=== PATIENT | male | born 1965 | race Caucasian/White ===

== ENCOUNTER 2019-06-15 09:52 | Emergency (ER) | payer OTHER, SELFPAY ==
[2019-06-15 09:53] VITALS: BP 125/87; PULSE 71; RESP 18; TEMP 36.6; O2SAT 98; BMI 28.1
--- NOTE | 2019-06-15 10:02 | EKG12_ITS ---
Test Reason : FALL Blood Pressure : / mmHG Vent. Rate : 070 BPM Atrial Rate : 070 BPM P-R Int : 144 ms QRS Dur : 092 ms QT Int : 384 ms P-R-T Axes : 066 072 046 degrees QTc Int : 414 ms Normal sinus rhythm Normal ECG Confirmed by CLEOPATRA IVY, LEV ([id number]), video effects editor IFEOMA ABARCA ([id number]) on 06/22/2019 2:05:14 PM Referred By: JEANNA Confirmed By:LEV WHELAN MD
--- NOTE | 2019-06-15 10:03 | CT_ITS ---
STUDY: CT CERVICAL SPINE WITHOUT CONTRAST REASON FOR EXAM: Male, 53 years old. Neck pain following the 12 foot fall. RADIATION DOSAGE (If Supplied By Facility): CTDIvol = ( 20.22 ) mGy, DLP = ( 349.69 ) mGycm TECHNIQUE: High resolution transaxial imaging was performed without contrast material. Sagittal and coronal images were reconstructed. Individualized dose optimization techniques were used for this CT. COMPARISON: None FINDINGS: Normal craniovertebral junction. Normal anterior atlantoaxial articulation. Normal odontoid process. Normal cervical lordosis. Normal vertebral bodies and posterior osseous elements. C2-3: Normal endplates. Normal disc height and morphology. Normal central canal and intervertebral neuroforamina. C3-4: Mild left paracentral spondylosis causing minimal deformity of the thecal sac. C4-5: Mild degree of disc space narrowing. Anterior spondylosis. Uncovertebral arthrosis. No significant stenosis is seen. C5-6: Mild degree of disc space narrowing and spondylosis. Uncovertebral arthrosis. No stenosis is seen. C6-7: Normal endplates. Normal disc height and morphology. Normal central canal and intervertebral neuroforamina. C7-T1: Normal endplates. Normal disc height and morphology. Normal central canal and intervertebral neuroforamina. I suspect a nondisplaced fracture along the posterior aspect of the right second rib. CT/Spine Cervical without Contras IMPRESSION: Multilevel degenerative changes, as described above. I suspect a nondisplaced fracture along the medial aspect of the posterior portion of the right second rib Electronically Signed: Anshu Blackwood, at 11:12 EST , Service support ,
--- NOTE | 2019-06-15 10:03 | CT_ITS ---
STUDY: CT ABDOMEN AND PELVIS WITH CONTRAST REASON FOR EXAM: Male, 53 years old. Right upper quadrant pain following a 12 foot fall. RADIATION DOSAGE (If Supplied By Facility): CTDIvol = ( 19.15 ) mGy, DLP = ( 1226.06 ) mGycm TECHNIQUE: Transaxial images were obtained from the dome of the diaphragm to the symphysis pubis without oral contrast. IV Isovue 300 100CC was administered. Sagittal and coronal images were reconstructed. Individualized dose optimization techniques were used for this CT. COMPARISON: None. FINDINGS: Mild degree of increased markings at the lung bases suggestive of atelectasis and/or scarring. The visualized portions of the heart are within normal limits. Normal liver. Normal gallbladder and extrahepatic biliary system. Normal spleen. Normal pancreas. Normal bilateral adrenal glands. Normal right kidney. Normal left kidney. There is a small hiatal hernia. Normal small intestine. Normal colon. The appendix is visualized and appears normal. There is scattered atherosclerotic calcification of the abdominal aorta, without a demonstrated aneurysm. Normal inferior vena cava. There is borderline retroperitoneal lymphadenopathy with enlarged nodes no greater than 10mm in the short axis diameter. Normal urinary bladder. There is a small umbilical hernia containing fat. Small right inguinal hernia containing fat. There are mild degenerative changes of the visualized lumbar spine. CT/Abdomen/Pelvis WITH Contrast IMPRESSION: Mild degree of increased markings at the lung bases suggestive of atelectasis and/or scarring. Electronically Signed: Anshu Blackwood, at 10:56 EST , Service support ,
--- NOTE | 2019-06-15 10:03 | CT_ITS ---
STUDY: CT BRAIN WITHOUT CONTRAST REASON FOR EXAM: Male, 53 years old. Headache and loss of consciousness following a 12 foot fall. RADIATION DOSAGE (If Supplied By Facility): CTDIvol = ( 44.99 ) mGy, DLP = ( 829.85 ) mGycm TECHNIQUE: Transaxial CT imaging of the brain was performed without administration of intravenous contrast material. Individualized dose optimization techniques were used for this CT. COMPARISON: No relevant priors. FINDINGS: Normal soft tissue structures. Normal calvarium. Normal size ventricles and extra-axial spaces for the patient's age. Normal white matter tracts of the cerebral hemispheres. Normal basal ganglia and thalami. Normal brainstem. Normal cerebellum. There is no intracranial hemorrhage. There are no findings of an acute ischemic infarction. Normal visualized paranasal sinuses. CT/Brain/Head without Contrast IMPRESSION: Normal unenhanced CT scan of the brain. Electronically Signed: Anshu Blackwood, at 10:53 EST , Service support ,
--- NOTE | 2019-06-15 10:04 | ED.DCSUM_ITS ---
History of Present Illness Chief Complaint: Fall Informant: Patient, - - Worker Onset: Today Mechanism/Context: Fall - 12 foot fall backwards Quality of Pain: Dull, Aching, Throbbing Current Severity: Severe Maximum Severity: Severe Worsened by: Breathing and movement of torso Relieved by: Nothing Associated Symptoms: Loss of consciousness, Amnesia, - - There are periods of time where patient cannot give specific details. Based on history obtained it is my opinion the patient did have loss of consciousness.. Negative for: Parasthesias, Weakness, Loss of function, Inability to ambulate Length of loss of consciousness: Brief Narrative: Patient is a 53-year-old male who has no sniffing past medical history. He was 12 feet off the ground when he was walking backwards at a job site. He fell. He landed on his back. He did hit his head. Based on the fact that there are time that he is unable to account for suspect he had loss of conscious. He does report severe headache. He also complains of neck and upper back pain. He arrived by private vehicle. He does admit to drinking 1 beer a week. He is a smoker. He denies any allergies. He denies paresthesia, anesthesia or motor weakness presently or time of impact. He states he is having difficulty breathing. He denied abdominal pain. Tetanus Immunization: >10 years Prior similar symptoms: No Recent Illness/Hospitalization: No - Past Medical History (1) No significant past medical history Status: Acute Past Medical History - Allergies and Home Meds Allergies/Adverse Reactions: Allergies No Known Allergies Allergy (Verified 06/15/19 10:11) Primary Care Physician: Care Physician,No Primary [Primary Care Provider] - Prior records reviewed: No Past Medical History: None Surgical History: no surgical history Lives: Alone Smoking Status: Current every day smoker Alcohol: Rare Drugs: None Review of Systems General: Denies: Chills, Fever Eyes: Denies: Visual changes - bilaterally, Blurred Vision - bilaterally, Diplopia ENT: Denies: Bilateral ear pain, Rhinorrhea, Sore throat Cardiovascular: Reports: Chest pain. Denies: Palpitations Respiratory: Reports: Dyspnea, Dyspnea on exertion Gastrointestinal: Denies: Abdominal pain, Nausea, Vomiting, Diarrhea Musculoskeletal: Reports: Neck pain, Back pain. Denies: Myalgias, Arthralgias, Swelling, Extremity Pain Skin: Denies: Rash, Wounds Neurological: Reports: Headache. Denies: Weakness, Parasthesia, Numbness, -, - Hematologic: Denies: Easy bruising, Easy bleeding Allergy: Denies: Uticaria, Swelling of the mouth Physical Exam Vital Signs/Narrative: Vital Signs Temp Pulse Resp BP Pulse Ox 06/15/19 09:53 97.8 F 71 18 125/87 H 98 Inital Vital Signs reviewed: Yes General: Well nourished, Well developed Head: Normocephalic, Atraumatic, Trauma, - - There is no clinical findings of basal skull fracture. Eyes: Perrl, EOMI, - - There is no subconjunctival hemorrhage noted.. Negative for: Pale conjunctiva, Scleral icterus ENT: TM's clear, No hemotympanum or drainage, No trauma. Negative for: Hemotympanum, Otorrhea, Nasal trauma, Nasal septal hematoma Neck: Spinal Tenderness. Negative for: Nontender, Paraspinal Tenderness Cardiovascular: Regular rate, Regular rhythm, No murmurs, Normal S1, Normal S2 Abdomen: Soft, Normal bowel sounds, Tender, Guarding - Upper quadrant. Negative for: Nontender, Nondistended, Hepatomegaly, Splenomegaly, Mass Back: CVA Tenderness - Left, Spinal Tenderness. Negative for: Nontender, CVA Tenderness - Right Skin: Normal color, No rash Neurological: Alert, Oriented x3, Cranial nerves II-XII grossly intact, Normal Strength, Normal Sensation - Glascow Coma Scale Eye Opening: Spontaneous Motor: Obeys Commands Verbal: Oriented Coma Scale Total: 15 Diagnostic/Tx/Re-eval Chest X-Ray - ED: 1 View, Read by ED Physician, Normal, Heart, Mediastinum, Bony Structures, No Acute Disease, - - No evidence of hemothorax or pneumothorax. There is slight increased interstitial markings right lower lobe. Will view CT of abdomen pelvis to evaluate right lower lung field to determine if there is or is not evidence of pulmonary contusion.10:45 Total of 3 views of thoracic spine were obtained. There is loss of height T7, T8 and T9. $th right rib fracture. Will review prior x-rays to determine if this is new or not. CT of the head was reviewed by me and there is no evidence of subdural, epidural, subarachnoid hemorrhage or intraparenchymal bleed/contusion. Formal reading pending. CT of the neck reveals no soft tissue swelling, subluxation, dislocation or fracture. Awaiting formal read. CT of the abdomen pelvis with IV contrast reveals no hepatic, splenic or renal injury. There is no evidence of pneumoperitoneum. Formal read pending Impressions Abdomen/Pelvis CT 06/15/19 10:03 IMPRESSION: Mild degree of increased markings at the lung bases suggestive of atelectasis and/or scarring. Electronically Signed: Anshu Blackwood, at 10:56 EST , Service support , Brain CT 06/15/19 10:03 IMPRESSION: Normal unenhanced CT scan of the brain. Electronically Signed: Anshu Blackwood, at 10:53 EST , Service support , Cervical Spine CT 06/15/19 10:03 IMPRESSION: Multilevel degenerative changes, as described above. I suspect a nondisplaced fracture along the medial aspect of the posterior portion of the right second rib Electronically Signed: Anshu Blackwood, at 11:12 EST , Service support , Chest X-Ray 06/15/19 10:40 IMPRESSION: Nondisplaced fracture of the anterolateral aspect of the right fourth and possibly fifth ribs. Findings suggestive of bibasilar atelectasis slightly more prominent on the right side. Electronically Signed: Anshu Blackwood, at 10:59 EST , Service support , Thoracic Spine X-Ray 06/15/19 10:40 IMPRESSION: Multilevel disc space narrowing and spondylosis. Increased markings at the right lung base suggestive of atelectasis. Nondisplaced fracture along the anterolateral aspect of the right fourth rib. Electronically Signed: Anshu Blackwood, at 11:00 EST , Service support , 06/15/19 10:03 Abdomen/Pelvis WITH Contrast [CT] Stat Brain/Head without Contrast [CT] Stat Spine Cervical without Contras [CT] Stat 06/15/19 10:40 Chest 1 View (Portable) [RAD] Stat Thoracic Spine 2 Views [RAD] Stat Laboratory Results 06/15/19 06/15/19 06/15/19 10:10 10:10 10:10 WBC 6.3 RBC 5.42 Hgb 16.4 Hct 49.2 MCV 90.8 MCH 30.3 MCHC 33.3 RDW Std Deviation 44.9 H RDW Coeff of Andrei 13.3 Plt Count 196 MPV 9.9 Immature Gran % (Auto) 0.600 Neut % (Auto) 71.7 H Lymph % (Auto) 21.0 [place] % (Auto) 5.2 Eos % (Auto) 1.0 Baso % (Auto) 0.5 Absolute Neuts (auto) 4.5 Absolute Lymphs (auto) 1.32 Nucleated RBC % 0 PT 12.4 INR 0.9 APTT 25.2 Sodium 136 Potassium 5.0 Chloride 104 Carbon Dioxide 27.0 Anion Gap 5 BUN 17 Creatinine 1.16 Estim Creat Clear Calc 68.85 Est GFR (MDRD) Af Amer 84 Est GFR (MDRD) Non-Af 70 BUN/Creatinine Ratio 14.7 Glucose 116 H Calcium 9.4 Reviewed read by radiologist. Agree there is suspicion for fracture of second right rib on the cervical spine images. Since there is concern the patient may have 3 or more fractures will obtain CT of the chest to determine if there is more fractures. If there are he will require transfer to trauma center. T of the chest reveals a second posterior right rib fracture and a fourth right rib fracture. No other abdomen allergies noted. There is a nodule which will require follow-up. - EKG Initial EKG Interpretation: Sinus Rhythm - Sinus rhythm with a ventricular rate of 70. SD interval is 146 ms. QS duration 92 ms. QT duration 384 ms. Gibbs is normal. The EKG is normal. - Medical Decision Making History of fall from 12 feet head trauma and loss of conscious severe headache will obtain CT of the head to evaluate for intracranial bleed i.e. subdural, epidural, traumatic subarachnoid hemorrhage versus contusion. C-spine cannot be cleared per Nexus criteria therefore will obtain CT of the neck. Because he has significant tenderness thoracic area plain films were obtained. There is decreased breath sounds on the left and reason for chest x-ray to rule out pneumothorax. Because of the significant tenderness in the right upper quadrant CT of the abdomen and pelvis was obtained to evaluate for splenic and hepatic injury. UA was obtained to assess for evidence of renal contusion. Appropriate blood work was ordered. IV was established and he received a 3 cc/kg bolus. He also received 4 mg of Zofran and morphine IV push for his nausea and pain respectively. If patient requires transfer he [facility]. He states he lives in [place]. ED Disposition - Plan for ED Patient: Diagnosis: Concussion with brief LOC, Multiple fractures of ribs of right side, Contusion of abdominal wall, initial encounter, Contusion of left back wall of thorax, initial encounter, Acute cervical myofascial strain Instructions: Rib Fracture (Broken Rib), CONCUSSION, No Wake Up, Neck Sprain/Strain Prescriptions: Oxycodone HCl/Acetaminophen [Percocet 5/325] 1 tab PO Q6H PRN PRN 5 Days #20 tab PRN Reason: pain Prescription Printed Referrals: Care Physician,No Primary [Primary Care Provider] - Corporate,Care [GROUP OF PHYSICIANS] - 2 Days Additional Instructions: Use incentive spirometer every 1-2 hours while awake for the next week
[2019-06-15] MEDS: Ondansetron 4 MG/2 ML Vial IV (10:09)
[2019-06-15] MEDS: Morphine 4 MG/ML Syringe IV ×2 (10:09→11:39)
[2019-06-15 10:17] LABS: Absolute Lymphocyte Count 1.32 X10^3/uL (0.83-4.51); Absolute Neutrophil Count 4.5 X10^3/uL (2.0-7.7); Basophil# 0.03 X10^3/uL; Basophil% 0.5 % (0-1); Eosinophil# 0.06 X10^3/uL; Hematocrit 49.2 % (40-54); Hemoglobin 16.4 g/dL (13.0-16.5); Lymphocyte # 1.32 X10^3/ul (4.0); Mean Corp Hgb Conc 33.3 g/dL (32-36); Mean Corpuscular Hgb 30.3 pg (27.0-32.0); Mean Corpuscular Volume 90.8 fL (80-94); Mean Platelet Vol. 9.9 fl (6.2-12.0); Monocyte# 0.33 X10^3/uL; Monocyte% 5.2 % (0-10); NRBC Flagged by Analyzer 0 % (0-5); Neutrophil # 4.52 X10^3/uL (2.7-7.7); Neutrophil % 71.7 % (47-70); Platelet Count 196 K/mm3 (150-450); RBC Distribution Width CV 13.3 % (11.6-14.6); RBC Distribution Width SD 44.9 fl (35.1-43.9); Red Blood Count 5.42 M/mm3 (4.6-6.2); White Blood Count 6.3 K/mm3 (4.4-11.0)
[2019-06-15 10:27] LABS: International Normalized Ratio 0.9; Prothrombin Time (Protime)PT. 12.4 SECONDS (11.7-14.9)
[2019-06-15 10:28] LABS: Partial Thromboplast Time 25.2 Seconds (24.1-36.2)
[2019-06-15 10:37] LABS: Anion Gap 5 (5-15); BUN 17 mg/dL (7-18); BUN/Creat Ratio 14.7 RATIO (10-20); Calcium,Total 9.4 mg/dL (8.5-10.1); Chloride 104 mmol/L (98-107); Creatinine, Serum 1.16 mg/dL (0.70-1.30); EST Glomerular Filtration Rate 70 mL/min (>60); Est Glom Filt Rate - Afr Amer 84 mL/min (>60); Estimated Creatinine Clearance 68.85 ml/min; Glucose 116 mg/dL (74-106); Sodium Level 136 mmol/L (136-145)
--- NOTE | 2019-06-15 10:40 | RAD_ITS ---
STUDY: X-RAY - THORACIC SPINE REASON FOR EXAM: Male, 53 years old. History of a fall from 12 foot height. TECHNIQUE: AP and lateral view(s) of the thoracic spine were obtained. COMPARISON: None. FINDINGS: Normal kyphosis of the thoracic spine. There is no substantial scoliosis. There is demineralization of the thoracic spine with endplate spondylosis. There is multilevel disc space narrowing of the thoracic spine. Nondisplaced fracture of the anterolateral aspect of the right fourth rib. The soft tissue structures are unremarkable. RAD/Thoracic Spine 2 Views IMPRESSION: Multilevel disc space narrowing and spondylosis. Increased markings at the right lung base suggestive of atelectasis. Nondisplaced fracture along the anterolateral aspect of the right fourth rib. Electronically Signed: Anshu Blackwood, at 11:00 EST , Service support ,
--- NOTE | 2019-06-15 10:40 | RAD_ITS ---
STUDY: X-RAY CHEST REASON FOR EXAM: Male, 53 years old. 12 foot fall. TECHNIQUE: Single AP portable view of the chest. COMPARISON: None. FINDINGS: EKG electrodes are seen. The lungs are clear and expanded. There is no demonstrated pleural abnormality. Normal size heart. Normal mediastinum and damon. Normal visualized pulmonary arteries. There is atherosclerotic calcification of the aortic arch with tortuosity. Normal visualized thoracic spine. Nondisplaced fracture of the anterolateral aspect of the right fourth rib and possible the fifth. Mild increased markings at the lung bases slightly worse on the right side suggestive of atelectasis. RAD/Chest 1 View (Portable) IMPRESSION: Nondisplaced fracture of the anterolateral aspect of the right fourth and possibly fifth ribs. Findings suggestive of bibasilar atelectasis slightly more prominent on the right side. Electronically Signed: Anshu Blackwood, at 10:59 EST , Service support ,
--- NOTE | 2019-06-15 11:24 | CT_ITS ---
STUDY: CT CHEST WITHOUT CONTRAST REASON FOR EXAM: Male, 53 years old. Trauma RADIATION DOSAGE (If Supplied By Facility): CTDIvol = ( 19.10 ) mGy, DLP = ( 687.16 ) mGycm TECHNIQUE: Transaxial imaging was performed without the administration of intravenous contrast material. Individualized dose optimization techniques were used for this CT. COMPARISON: None. FINDINGS: Bibasilar atelectasis. Incompletely characterized pleural density with associated small pneumatocele measuring up to 1.2 cm series 4 image 61. 5 mm right lower lobe nodule series 4 image 69.. There is no demonstrated pleural abnormality. There are calcifications of the coronary arteries. Normal mediastinum. Normal hilar regions. Normal unenhanced pulmonary arteries. Normal aorta arch and descending thoracic aorta. Acute nondisplaced fractures of the right anterolateral second and fourth ribs. Please see associated CT abdomen report for details regarding that anatomy. CT/Chest without Contrast IMPRESSION: Acute nondisplaced fractures of the right anterolateral second and fourth ribs. Pulmonary nodules/densities including a 1.2 cm pleurally-based focus which may indicate atelectasis and a 5 mm right lower lobe nodule. Consider correlation with any prior thoracic imaging to document stability or follow-up maybe obtained based on the criteria less than 10 of this report. Fleischner Society Recommendations for Follow-up and Management of Nodules Smaller than 8 mm Detected Incidentally at Nonscreening CT. Nodule size < or = 4 mm: Low-Risk Patient - No follow-up needed. High-Risk Patient - Follow-up CT at 12 months; if unchanged, no further follow-up. Nodule size > 4-6 mm: Low-Risk Patient - Follow-up CT at 12 months; if unchanged, no further follow-up. High-Risk Patient - Initial follow-up CT at 6-12 months then at 18-24 months if no change. Nodule size > 6-8 mm: Low-Risk Patient - Initial follow-up CT at 6-12 months then at 18-24 months if no change. High-Risk Patient - Initial follow-up CT at 3-6 months then at 9-12 and 24 months if no change. Nodule size > 8 mm: Low-Risk Patient - Follow-up CT at around 3,9 and 24 months. Dynamic contrast-enhanced CT, PET and/or biopsy. High-Risk Patient - Same as for low-risk patient. Low-Risk = Minimal or absent history of smoking and of other known risk factors. High-Risk = History of smoking or of other known risk factors. Electronically Signed: Damon Cano, at 12:32 EST Tel , Service support ,
[2019-06-15 11:48] LABS: Mucous, Urine 0 SEEN /hpf (<or=2+); Squamous Epithelial Cells - UA 0 SEEN /hpf (0-5); White Blood Cells 0 SEEN /hpf (0-5)
[2019-06-15 11:50] LABS: Color, Urine Yellow (Yellow); Glucose, Dipstick Normal (Normal); Ketone-Dipstick Negative (Negative); Leukocyte Esterase-Dipstick Negative /ul (Negative); Nitrite-Dipstick Negative (Negative); Occult Blood-Urine 50 /ul (Negative); Protein-Dipstick 30 mg/dl (Negative); Specific Gravity, Urine 1.015 (1.002-1.030); Urine Bilirubin Dipstick Negative (Negative); Urine Clarity Sl. Cloudy (Clear); Urine Urobilinogen Normal (Normal)
[2019-06-15 11:56] LABS: Bacteria RARE /hpf (None Seen); Red Blood Cells-Urine 0-5 SEEN /hpf (0-5)
[2019-06-15 12:07] VITALS: BP 136/77; PULSE 66; RESP 20; O2SAT 98
[2019-06-15] MEDS: HYDROmorphone 1 MG/ML Syringe IV (13:32)
[2019-06-15 13:48] VITALS: BP 135/79; PULSE 74; RESP 12; O2SAT 96
== END 2019-06-15 14:00 | disposition home or self-care (01) ==
PROVIDERS: Emergency Provider Emergency Medicine
DX: S06.0X1A Concussion with loss of consciousness of 30 minutes or less, initial encounter (principal); S22.41XA Multiple fractures of ribs, right side, initial encounter for closed fracture; S30.1XXA Contusion of abdominal wall, initial encounter; S20.222A Contusion of left back wall of thorax, initial encounter; S16.1XXA Strain of muscle, fascia and tendon at neck level, initial encounter; R91.8 Other nonspecific abnormal finding of lung field; W17.89XA Other fall from one level to another, initial encounter; Y93.9 Activity, unspecified; Y92.9 Unspecified place or not applicable; F17.200 Nicotine dependence, unspecified, uncomplicated
CPT/HCPCS: 70450; 71045; 71250; 72070; 72125; 74177; 80048; 81001; 85025; 85610; 85730; 93005; 96361; 96374; 96375; 96376; 99283; J7030; Q9967; A4216; J2405